=== PATIENT | female | born 1980 | race African-American/Black ===

== ENCOUNTER 2020-04-24 15:44 | Outpatient (REF) | payer OTHER, SELFPAY | END 2020-04-24 15:45 | disposition home or self-care (01) | LOC: HO.LAB 15:44 | PROVIDERS: Visit Provider Internal Medicine | DX: Z20.828 Contact with and (suspected) exposure to other viral communicable diseases (principal) | CPT/HCPCS: C9803; U0003 ==

== ENCOUNTER 2020-07-10 08:28 | Outpatient (REF) | payer OTHER, SELFPAY | END 2020-07-10 08:29 | disposition home or self-care (01) | LOC: HO.LAB 08:28 | PROVIDERS: Visit Provider Internal Medicine | DX: Z20.822 Contact with and (suspected) exposure to COVID-19 (principal) | CPT/HCPCS: 36415; C9803; U0003; U0005 ==

== ENCOUNTER 2020-08-29 15:44 | Outpatient (REF) | payer OTHER, SELFPAY | END 2020-08-29 15:45 | disposition home or self-care (01) | LOC: HO.LAB 15:44 | PROVIDERS: Visit Provider Internal Medicine | DX: Z20.822 Contact with and (suspected) exposure to COVID-19 (principal) | CPT/HCPCS: C9803; U0003; U0005 ==

== ENCOUNTER 2020-09-15 10:42 | Outpatient (REF) | payer OTHER, SELFPAY ==
[2020-09-15 11:13] LABS: COVID-19 Test Negative (Negative)
== END 2020-09-15 10:43 | disposition home or self-care (01) ==
LOC: HO.LAB 10:42
PROVIDERS: Visit Provider Internal Medicine
DX: Z20.822 Contact with and (suspected) exposure to COVID-19 (principal)
CPT/HCPCS: 36415; 87635; C9803

== ENCOUNTER 2024-04-19 14:06 | Outpatient (REF) | payer OTHER, SELFPAY ==
--- NOTE | ~2024-04-19 | CT_ITS ---
EXAMINATION: CT HEAD WITHOUT CONTRAST CLINICAL INFORMATION: Blunt head trauma with loss of consciousness, significant head injury and posttraumatic headache. COMPARISON: None available. TECHNIQUE: Contiguous axial imaging was performed from the skull base to vertex without intravenous administration of contrast. This CT examination was performed using dose optimization techniques as appropriate, variously including the following: *Automated exposure control *Adjustment of mA and/or kV according to patient size (this includes techniques or standardized protocols for targeted exams where dose is matched to indication/reason for exam; i.e. extremities or head) *Use of iterative reconstruction technique DLP: 745 mGy-cm FINDINGS: Ventricles, sulci and cisterns are normal. There is no midline shift, no abnormal intra- or extra- axial fluid accumulation. Og and white matter differentiation is normal. Bone window images show no evidence of skull fracture. Mild mucosal thickening is seen at the floor of left maxillary sinus. CT/CT head/brain wo IV con IMPRESSION: 1. Normal CT scan of the brain. 2. No intracranial hemorrhage or skull fracture is seen. 3. No evidence of space occupying lesion could be found. 4. The current plain CT scan of the brain shows no diagnostic evidence of acute cerebral infarction. Electronically signed by: Esteban Lo MD 04/20/2024 10:17 AM NINA
== END 2024-04-19 14:07 | disposition home or self-care (01) ==
LOC: HO.CT 14:06
PROVIDERS: PCP Internal Medicine; Visit Provider Registered Nurse
DX: S06.0X9A Concussion with loss of consciousness of unspecified duration, initial encounter (principal)
CPT/HCPCS: 70450

== ENCOUNTER 2025-01-10 12:14 | Outpatient (AMB) | payer OTHER, SELFPAY ==
--- NOTE | 2025-01-10 12:24 | A.OFFVIS_ITS ---
Intake Visit Reasons: F/u Allergies No Known Allergies Allergy (Verified 01/10/25 12:29) Medication List - Last Reconciled 01/10/25 by Carolyn Bran CNP azelastine intranasal bupropion HCl 75 mg PO BID cetirizine 10 mg PO DAILY divalproex (Depakote) 250 mg PO BEDTIME 90 days gabapentin 300 mg PO BID hydrochlorothiazide 25 mg PO DAILY losartan 25 mg PO DAILY sumatriptan succinate mg PO tamoxifen 20 mg PO DAILY HPI Comments Details: 44-year-old woman with migraine headaches and breast cancer s/p RT in 2023 currently on tamoxifen. Headaches were happening a few times a week, more around her period. Triggers also included bright lights. Sleep was not so good, wakes during the night and has trouble falling back to sleep. Napping during the day. She was having more numbness and tingling to right hand over the last few months. [facility] Medical History (Updated 01/10/25 @ 12:43 by Carolyn Bran CNP) Carpal tunnel syndrome Insomnia Depression with anxiety Migraine without aura Review of Systems Const Denies chills, Denies daytime sleepiness, Reports difficulty sleeping, Denies fatigue, Denies fever(s), Denies frequent falls, Reports headache(s), Denies increased appetite, Denies poor appetite, Denies snoring, Denies weakness, Denies weight gain and Denies weight loss Eyes Denies loss of vision ENT Denies vertigo, Denies dizziness and Reports headache(s) Card Denies chest pain at rest, Denies chest pain with activity, Denies syncope, Denies leg edema and Denies palpitations Resp Denies snoring GI Denies constipation, Denies heartburn, Denies diarrhea and Denies nausea Denies urinary frequency, Denies urinary incontinence and Denies urinary urgency Musc Denies abnormal gait, Reports numbness and Reports tingling Skin/Breast Denies dry skin and Denies rash Neuro Denies abnormal gait, Denies vertigo, Denies dizziness, Denies syncope, Denies frequent falls, Reports headache(s), Denies lack of coordination, Denies loss of vision, Denies memory loss, Reports numbness, Denies restless legs, Denies seizure-like activity, Reports tingling, Denies paresthesias, Denies tremor(s) and Denies weakness Psych Reports anxiety, Denies depression, Denies auditory hallucinations, Denies m iron loss, Denies visual hallucinations and Denies suicidal ideation Endo Denies fatigue and Denies palpitations Physical Exam Const Other: General Appearance:? normal, in no acute distress. Skin:? no rashes, no significant birthmarks. Heart:? S1, S2 normal, no murmurs. Lungs:? clear anteriorly and posteriorly. Extremities:? no edema. Psych:? alert, oriented, cognitive function intact, cooperative with exam. Neuro Other: Mental Status:?Normal attention, orientation, memory and affect.? Cranial Nerves:?Pupils are equal, round and reactive to light. External occular muscles are intact. Visual slaughter are full. Face is symmetrical. Facial sensations are normal. Tongue is midline. Palate elevates symmetrically. Shoulder shrugging is normal. Hearing to bedside conversation is normal. Sensory Exam:?....? Coordination:?No ataxia,?no titubation.? Gait Exam: Within normal limits. Extrapyramidal System:?No tremor, rigidity with normal facial expressions.? Pronator Drift:?Not present.? Involuntary Movements:?No tremors seen.? Speech:?Normal.? Results Reviewed Results Reviewed: [address] [address] [address] Scan Report Signed Patient: Cristiana Montelongo MR#: [id number] : 1980 Acct:[id number] Age/Sex: 43 / F ADM Date: 04/19/24 Loc: HO.CT Attending Dr: Carolyn Bran CNP Ordering Physician: Carolyn Bran CNP Date of Service: 04/19/24 Procedure(s): CT head/brain wo IV con Accession Number(s): [id number] cc: Carolyn Bran CNP; LAYTON LANDIS MD~ EXAMINATION: CT HEAD WITHOUT CONTRAST CLINICAL INFORMATION: Blunt head trauma with loss of consciousness, significant head injury and posttraumatic headache. COMPARISON: None available. TECHNIQUE: Contiguous axial imaging was performed from the skull base to vertex without intravenous administration of contrast. This CT examination was performed using dose optimization techniques as appropriate, variously including the following: *Automated exposure control *Adjustment of mA and/or kV according to patient size (this includes techniques or standardized protocols for targeted exams where dose is matched to indication/reason for exam; i.e. extremities or head) *Use of iterative reconstruction technique DLP: 745 mGy-cm FINDINGS: Ventricles, sulci and cisterns are normal. There is no midline shift, no abnormal intra- or extra- axial fluid accumulation. Og and white matter differentiation is normal. Bone window images show no evidence of skull fracture. Mild mucosal thickening is seen at the floor of left maxillary sinus. CT/CT head/brain wo IV con IMPRESSION: 1. Normal CT scan of the brain. 2. No intracranial hemorrhage or skull fracture is seen. 3. No evidence of space occupying lesion could be found. 4. The current plain CT scan of the brain shows no diagnostic evidence of acute cerebral infarction. Electronically signed by: Esteban Lo MD 04/20/2024 10:17 AM EST --- NCV/EMG RTUE This is a normal study. 01/14/21. 05/12/20 NCV/EMG UE THIS IS A NORMAL STUDY. Assessment & Plan Assessment & Plan (1) Migraine: Code(s): G43.909 - Migraine, unspecified, not intractable, without status migrainosus Category: Medical Qualifiers: Migraine type: unspecified Status migrainosus presence: without status migrainosus Intractability: not intractable Qualified Code(s): G43.909 - Migraine, unspecified, not intractable, without status migrainosus Plan: CT scan results reviewed, no acute findings. Continue Depakote DR 250mg 1 tablet at bedtime. Continue sumatriptan 50mg 1 tablet as needed for migraine. (2) Carpal tunnel syndrome: Code(s): G56.00 - Carpal tunnel syndrome, unspecified upper limb Category: Medical Qualifiers: Laterality: right Qualified Code(s): G56.01 - Carpal tunnel syndrome, right upper limb Plan: NCV/EMG ordered. Plan Meds tried: Amitriptyline, imitrex, propranalol, Topiramate, Verapamil, Verapamil ER Orders: Orders NE electromyogram (EMG) Today G56.01 - Carpal tunnel syndrome, right upper limb NE nerve conduction velocity Today G56.01 - Carpal tunnel syndrome, right upper limb Coding Level of Care Code Est Pt Level 4 (37020) Diagnoses Migraine without status migrainosus, not intractable, unspecified migraine type G43.909 Migraine type: unspecified Status migrainosus presence: without status migrainosus Intractability: not intractable Carpal tunnel syndrome of right wrist G56.01 Laterality: right
--- OUTSIDE RECORDS SUMMARY | 2025-01-10 13:12 | XMS_ITS | Clinical Summary ---
Author Organization [facility] Address [address] [place] [address] Care Team Providers Care Sock Examiner Name Role Phone De Singh MD Primary Care Provider [phone] Allergies Active Allergy Reactions Criticality Noted Date Comments Cashew Nut (Anacardium Occid entale) Skin Test 10/19/2023 Latex 10/19/2023 Shellfish 10/19/2023 Soybean Oil 10/19/2023 Medications Medication Sig Dispensed Refills Start Date End Date Status cetirizine (ZyrTEC) 10 MG tablet Take 1 tablet (10 mg total) by mouth daily. 0 Active linaclotide (LINZESS) 290 MCG capsule Take by mouth. 0 Activ e gabapentin (NEURONTIN) 300 MG capsule Take 1 capsule (300 mg total) by mouth 3 (three) times a day. 0 Active buPROPion (WELLBUTRIN) 75 MG tablet Take 1 tablet (75 mg total) by mouth 2 (two) times a day. 0 Active linaclotide (Linzess) 145 MCG CAPS Take 1 capsule (145 mcg total) by mouth every morning before breakfast. 0 Active hydroCHLOROthiazide (HYDRODIURIL) tablet 25 mg Take 1 tablet (25 mg total) by mouth daily. 0 Active verapamil (CALAN) 40 MG tablet Take 1 tablet (40 mg total) by mouth 3 (three) times a day. 0 Active EPINEPHrine, Anaphylaxis, (ADRENALIN) 1 MG/ML SOLN Inject under the skin. 0 Active norethindrone (MICRONOR) 0.35 MG tablet Take 1 tablet (0.35 mg total) by mouth daily. 0 Active fluticasone (FLONASE) 50 MCG/ACT nasal spray spray/apply 1 spray in each nostril daily. 0 Active fluticasone (FLOVENT HFA) 110 MCG/ACT inhaler Inhale 1 puff into the lungs 2 (two) times a day. 0 Active albuterol 108 (90 Base) MCG/ACT inhaler Inhale 2 puffs into the lungs every 6 (six) hours as needed for wheezing. 0 Active Probiotic Product (PROBIOTIC-10 PO) Take by mouth. 0 Act enrique etonogestrel (NEXPLANON) 68 MG IMPL subcutaneous implant 68 mg by Subdermal route once. 0 Active loratadine (Claritin) 10 MG tablet Take 1 tablet (10 mg total) by mouth daily. 0 Active SUMAtriptan (IMITREX) 50 MG tablet Take 1 tablet (50 mg total) by mouth every 2 (two) hours as needed for migraine. 0 Active hydrocortisone 1 % ointment Apply topically 2 (two) times a day. 0 Active naproxen (NAPROSYN) 500 MG tablet Take 1 tablet (500 mg total) by mouth 2 (two) times a day with meals. 0 Active Melatonin 10 MG TABS Take by mouth. 0 Active tamoxifen (NOLVADEX) 20 MG tablet Take 1 tablet (20 mg total) by mouth daily 30 tablet 9 01/25/2024 Active Active Problems No known active problems Family History Medical History Relation Name Comments Cancer Father prostate Cancer Mother Breast Relation Name Status Comments Father Mother Social History Tobacco Use Types Packs/Day Years Used Date Smoking Tobacco: Former Cigarettes Q uit: 11/13/2006 Smokeless Tobacco: Never Alcohol Use Standard Drinks/Week Comments Yes 0 (1 standard drink = 0.6 oz pur e alcohol) social Sex and Gender Information Value Date Recorded Sex Assigned at Not on file Gender Identity Not on file Sexual Orientation Not on file Job Start Date Occupation Industry Not on file Not on file Not on file Last Filed Vital Signs Vital Sign Reading Time Taken Comments Blood Pressure 153/98 01/25/2024 10:09 AM EDT Pulse 55 01/25/2024 10:09 AM EDT Temperature 36.9 C (98.4 F) 01/25/2024 10:09 AM EDT Respiratory Rate - - Oxygen Saturation 100% 01/25/2024 10:09 AM EDT Inhaled Oxygen Concentration - - Weight 75.1 kg (165 lb 8 oz) 01/25/2024 10:09 AM EDT Height 160 cm (5' 3 ) 10/19/2023 2:53 PM EDT Body Mass Index 29.32 10/19/2023 2:53 PM EDT Plan of Treatment Health Maintenance Due Date Last Done Comments Hepatitis C Screening 1980 COVID-19 Vaccine (#1) 1984 Depression Screening 1991 BMI Counseling 1997 Preventative Health Evaluation 1997 Cervical Cancer Screening (Pap Smear) 2000 Pneumococcal Vaccine (3 of 3 - PPSV23 or PCV20) 06/27/2019 04/02/2016, 06/27/2014 DTap / Tdap / Td (7 - Td or Tdap) 04/10/2023 04/10/2013, 06/30/1983, 12/28/1980, Additional history exists Colon Cancer Screening (Colonoscopy) 2024 Influenza Vaccine (#1) 2025 4, 04/12/2022, 07/31/2019, Additional history exists Hepatitis B Vaccines Completed 05/26/2005, 12/28/2004, 11/27/2004 RSV Ped < 20 months Aged Out No longe r eligible based on patient's age to complete this topic Care Teams Sock Examiner Relationship Specialty Start Date End Date De Singh MD PCP - General Internal Medicine 09/23/23
--- OUTSIDE RECORDS SUMMARY | 2025-01-10 13:12 | XMS_ITS ---
Author Organization [facility] Address [address] [place] [address] Phone Care Team Providers Care Client Retention Specialist Name Role Phone De Singh MD Primary Care Provider [phone] [facility] - Housing Status:Ongoing (Active) Start date:09/21/2024 Enrollment date:09/21/2024 Enrollment reason:Self-enrolled Related social drivers of health:Housing Instability Related program episode:Community Health Worker Program (Active) Overview Housing service of Community Health Worker Program Case Team Name Relationship Phone Jyoti Naranjo Community Health Worker(Responsi [facility] Staff) Continued Care and Services Coordination
--- OUTSIDE RECORDS SUMMARY | 2025-01-10 13:12 | XMS_ITS ---
Author Organization [facility] Address [address] [place] [address] Phone Care Team Providers Care Department Store Manager Name Role Phone De Singh MD Primary Care Provider [phone] [facility] - Social Service Status:Ongoing (Active) Start date:09/21/2024 Enrollment date:09/21/2024 Enrollment reason:Self-enrolled Related program episode:Community Health Worker Program (Active) Overview Social Service service of Community Health Worker Program Case Team Name Relationship Phone Jyoti Naranjo Community Health Worker(Responsi [facility] Staff) Continued Care and Services Coordination
--- OUTSIDE RECORDS SUMMARY | 2025-01-10 13:12 | XMS_ITS | Encounter Summary ---
Author Organization [facility] Address [address] [place] [address] Care Team Providers Care Corporate Accounting Manager Name Role Phone De Singh MD Primary Care Provider [phone] Reason for Visit * Reason Comments Oncotype DX ordered Final Report - Oncotype Encounter Details Date Type Department Care Team Description 10/19/[address] [facility] Oncology Services [address] [place], [place] [id number] Roseann Fraser RN Oncotype DX ordered; Final Report - Oncotype Social History Tobacco Use Types Packs/Day Years [...] file Not on file Not on file documented as of this encounter Progress Notes * Roseann Fraser RN - 10/19/2023 3:41 PM EDT Images from the original note were not included. Oncotype DX test order submitted to [employer] (formerly [employer]) on the provider portal. Testing turn around time is 2-3 weeks. Final report will be scanned under library media specialist when available. [employer] [facility] * Roseann Fraser RN - 10/19/2023 3:41 PM EDT Images from the original note were not included. - full report has been uploaded under the library media specialist tab and attached to the next FOV on 11/10/23. documented in this encounter Plan of Treatment Not on file documented as of this encounter Visit Diagnoses Not on filedocumented in this encounter Care Teams Corporate Accounting Manager Relationship Specialty Start Date End Date De Singh MD PCP - General Internal Medicine 09/23/23 documented as of this encounter
--- OUTSIDE RECORDS SUMMARY | 2025-01-10 13:12 | XMS_ITS ---
Author Name [facility] Organization Unknown Care Team Organization Name Specialty Phone Email Start Date End Da te [facility] De Singh Primary Care 03/23/2022 01/02/20 24
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
--- OUTSIDE RECORDS SUMMARY | 2025-01-10 13:12 | XMS_ITS ---
Author Organization [facility] Address [address] [place] [address] Phone Care Team Providers Care Vehicle Mechanic Name Role Phone De Singh MD Primary Care Provider [phone] [facility] - Transportation Status:Ongoing (Active) Start date:09/21/2024 Enrollment date:09/21/2024 Enrollment reason:Self-enrolled Related social drivers of health:Transportation Related program episode:Community Health Worker Program (Active) Overview Community Health Worker Program - Transportation Service Episode Case Team Name Relationship Phone Jyoti Naranjo Community Health Worker(Responsi [facility] Staff) Continued Care and Services Coordination
--- OUTSIDE RECORDS SUMMARY | 2025-01-10 13:12 | XMS_ITS | Encounter Summary ---
Author Organization [facility] Address [address] [place] [address] Care Team Providers Care Claims Manager Name Role Phone De Singh MD Primary Care Provider [phone] Encounter Details Date Type Department Care Team Description 11/11/2023 Social Work [facility] Oncology Services [address] [place] [address] [facility] Social History Tobacco Use Types Packs/Day Years [...] on file documented as of this encounter Plan of Treatment Not on file documented as of this encounter Visit Diagnoses Not on filedocumented in this encounter Care Teams Claims Manager Relationship Specialty Start Date End Date De Singh MD PCP - General Internal Medicine 09/23/23 documented as of this encounter
--- OUTSIDE RECORDS SUMMARY | 2025-01-10 13:12 | XMS_ITS ---
Author Organization [facility] Address [address] [place] [address] Phone Care Team Providers Care Food Processing Scientist Name Role Phone De Singh MD Primary Care Provider [phone] Community Health Worker Program Status:Ongoing (Active) Start date:09/21/2024 Enrollment date:09/21/2024 Enrollment reason:Self-enrolled Related service episodes:[facility] - Housing (Active), [facility] - Food Insecurity (Active), [facility] - Transportation (Active), [facility] - Social Service (Active) Overview Community Health Worker Program Case Team Name Relationship Phone Jyoti Naranjo Community Health Worker([place] [facility] Staff) Continued Care and Services Coordination
--- OUTSIDE RECORDS SUMMARY | 2025-01-10 13:12 | XMS_ITS | Encounter Summary ---
Author Organization [facility] [place] [address] Care Team Providers Care Joint Cutter Name Role Phone De Singh MD Primary Care Provider [phone] Reason for Visit * Reason Onset Date Comments prior auth 12/17/2024 Encounter Details Date Type Department Care Team (Late st Contact Info) Description 12/17/2024 Telephone Internal Medicine - [facility] [address] [place] [address] De Singh MD [address] [place] [phone] Social History Tobacco Use Types Packs/Day Years [...] Record ed Within the last 3 months, deepak luevano many times did you visit the emergency [...] care for your loved ones. For example, childcare director or elderly care for an older adult? [...] as of this encounter Progress Notes * Ana M Garcia MA - 12/18/2024 9:39 AM EDT Electronic PA requested * Antonino Clark - 12/17/2024 2:49 PM EDT Prior Authorization for Medication-do not complete and send this encounter unless you have the fax from the pharmacy. Is this a Cover My Meds request: Yes -- Anaya Code [id number] Name of Medication methocarbamoL (ROBAXIN) 750 mg tablet Dose of Medication 750 mg What is the RX # from the faxed refill? How does patient take this med? Sig: Take 1 tablet (750 mg total) by mouth 3 (three) times a day. What Pharmacy did the fax come from: [facility] Pharmacy fax #: [phone] [employer] Party Information from fax: What Prescription Plan does the patient have? BIN/PCN if applicable: Cardholder ID: [id number] Person Code: Relationship Code: Help desk phone: [phone] documented in this encounter Plan of Treatment Upcoming Encounters Date Type Department Care Team (Late st Contact Info) Description 01/16/2025 10:30 AM EDT Office Visit Internal Medicine - [facility] [address] [place] [address] Cara Carrillo, JAVY [address] [place] [address] 01/16/2025 1:00 PM EDT Evaluation [facility] [address] [phone] Peace Mcdonald PT 02/07/2025 10:00 AM EDT Office Visit [facility] Hematology Oncology [address] [place] [phone] Grace Barker MD [address] [place] [address] 02/21/2025 10:00 AM EDT Office Visit [address] [phone] Karlo Ayala MD [address] [place] [address] 03/25/2025 2:00 PM EST Office Visit Gastroenterology [facility] [address] [phone] Estella Ray PA [address] [place] [phone] 04/30/2025 10:45 AM EST Office Visit Internal Medicine [address] [phone] Nela Francis, JAVY [address] [place] [address] 07/02/2025 8:20 AM EST Office Visit [address] [phone] Karlo Ayala MD [address] [place] [phone] documented as of this encounter Visit Diagnoses Not on filedocumented in this encounter Additional Health Concerns Assessment Noted Time PHQ-9 Depression Total Score: 22 11/30/2 025 7:29 AM EDT documented as of this encounter Care Teams Joint Cutter Relationship Specialty Start Date End Date De Singh MD [address] [place] [address] PCP - General 09/07/1997 documented as of this encounter
--- OUTSIDE RECORDS SUMMARY | 2025-01-10 13:12 | XMS_ITS ---
Author Organization [facility] Address [address] [place] [address] Phone Care Team Providers Care General Practice Name Role Phone De Singh MD Primary Care Provider [phone] [facility] - Food Insecurity Status:Ongoing (Active) Start date:09/21/2024 Enrollment date:09/21/2024 Enrollment reason:Self-enrolled Related social drivers of health:Food Risk Related program episode:Community Health Worker Program (Active) Overview Community Health Worker Program - Food Insecurity Service Episode Case Team Name Relationship Phone Jyoti Naranjo Community Health Worker(Responsi [facility] Staff) Continued Care and Services Coordination
== END 2025-01-10 12:56 | disposition home or self-care (01) ==
LOC: HO.HSM 12:15
PROVIDERS: PCP Internal Medicine; Visit Provider Registered Nurse
DX: G43.909 Migraine, unspecified, not intractable, without status migrainosus (principal); G56.01 Carpal tunnel syndrome, right upper limb
CPT/HCPCS: 99214

== ENCOUNTER → 2025-01-10 12:14 | Outpatient (BNVA) | payer OTHER, SELFPAY | PROVIDERS: PCP Internal Medicine; Visit Provider Registered Nurse | DX: G43.909 Migraine, unspecified, not intractable, without status migrainosus (principal); G56.01 Carpal tunnel syndrome, right upper limb; Z79.899 Other long term (current) drug therapy | CPT/HCPCS: 99212 ==

== ENCOUNTER 2025-01-17 10:40 | Outpatient (REF) | payer OTHER, SELFPAY ==
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
--- OUTSIDE RECORDS SUMMARY | 2025-01-17 12:12 | XMS_ITS ---
Author Organization [facility] Address [address] [place] [address] Phone Care Team Providers Care Glass Novelty Maker Name Role Phone De Singh MD Primary Care Provider [phone] [facility] - Social Service Status:Ongoing (Active) Start date:09/21/2024 Enrollment date:09/21/2024 Enrollment reason:Self-enrolled Related program episode:Community Health Worker Program (Active) Overview Social Service service of Community Health Worker Program Case Team Name Relationship Phone Jyoti Naranjo Community Health Worker(Responsi [facility] Staff) Continued Care and Services Coordination
--- OUTSIDE RECORDS SUMMARY | 2025-01-17 12:12 | XMS_ITS | Encounter Summary ---
Author Organization [facility] [place] [address] Care Team Providers Care Box Finisher Name Role Phone De Singh MD Primary Care Provider [phone] Reason for Visit * Reason Onset Date Comments prior auth 12/17/2024 Encounter Details Date Type Department Care Team (Late st Contact Info) Description 12/17/2024 Telephone Internal Medicine - [place] [address] [place] [address] De Singh MD [address] [place] [address] Social History Tobacco Use Types Packs/Day Years [...] care for your loved ones. For example, early childhood teacher or elderly care for an older adult? [...] What Pharmacy did the fax come from: [facility] Pharmacy fax #: [phone] Third Libertarian Information from fax: What Prescription Plan does the patient have? BIN/PCN if applicable: Cardholder ID: [id number] Person Code: Relationship Code: Help desk phone: [phone] documented in this encounter Plan of Treatment Upcoming Encounters Date Type Department Care Team (Late st Contact Info) Description 01/23/2025 2:30 PM EDT Treatment [address] [phone] Flako Collado, ASSEMBLY LINE BRAZER 01/25/2025 2:30 PM EDT Treatment [address] [phone] Flako Collado, ASSEMBLY LINE BRAZER 01/29/2025 2:30 PM EDT Treatment [address] [phone] Suleman Higuera, NBA 01/31/2025 11:00 AM EDT Treatment [address] [phone] José Miguel Adams, ASSEMBLY LINE BRAZER 02/04/2025 1:00 PM EDT Treatment [address] [phone] Flako Collado, ASSEMBLY LINE BRAZER 02/06/2025 11:00 AM EDT Treatment [address] [phone] Suleman Higuera, ASSEMBLY LINE BRAZER 02/07/2025 10:00 AM EDT Office Visit [facility] Hematology Oncology [address] [place] [phone] Grace Barker MD [address] [place] [address] 02/11/2025 11:00 AM EDT Treatment [address] [phone] Suleman Higuera, ASSEMBLY LINE BRAZER 02/13/2025 11:30 AM EDT Treatment [address] [phone] Peace Mcdonald, PT 02/21/2025 10:00 AM EDT Office [facility] [address] [phone] Karlo Ayala MD [address] [place] [address] 03/25/2025 2:00 PM EST Office Visit Gastroenterology [address] [phone] Estella Ray PA [address] [place] [phone] 04/30/2025 10:45 AM EST Office Visit Internal Medicine - [facility] [address] [place] [address] Nela Francis, JAVY [address] [place] [address] 07/02/2025 8:20 AM EST Office Visit Breast Care [facility] [address] [place] [phone] Karlo Ayala MD [address] [place] [address] documented as of this encounter Goals Goal [...] documented as of this encounter Care Teams Box Finisher Relationship Specialty Start Date End Date De Singh MD [address] [place] [address] PCP - General 09/07/1997 documented as of this encounter
--- OUTSIDE RECORDS SUMMARY | 2025-01-17 12:12 | XMS_ITS | Clinical Summary ---
Author Organization [facility] Address [address] [place] [address] Care Team Providers Care New Autos Delivery Driver Name Role Phone De Singh MD Primary Care Provider [phone] Allergies Active Allergy Reactions Criticality Noted Date [...] age to complete this topic Care Teams New Autos Delivery Driver Relationship Specialty Start Date End Date De Singh MD PCP - General Internal Medicine 09/23/23
--- OUTSIDE RECORDS SUMMARY | 2025-01-17 12:12 | XMS_ITS ---
Author Organization [facility] Address [address] [place] [address] Phone Care Team Providers Care Wic Site Coordinator Name Role Phone De Singh MD Primary Care Provider [phone] [facility] - Housing Status:Ongoing (Active) Start date:09/21/2024 Enrollment date:09/21/2024 Enrollment reason:Self-enrolled Related social drivers of health:Housing Instability Related program episode:Community Health Worker Program (Active) Overview Housing service of Community Health Worker Program Case Team Name Relationship Phone Jyoti Naranjo Community Health Worker(Responsi [facility] Staff) Continued Care and Services Coordination
--- OUTSIDE RECORDS SUMMARY | 2025-01-17 12:12 | XMS_ITS ---
Author Organization [facility] Address [address] [place] [address] Phone Care Team Providers Care Production Crew Supervisor Name Role Phone De Singh MD Primary Care Provider [phone] Community Health Worker Program Status:Ongoing (Active) Start date:09/21/2024 Enrollment date:09/21/2024 Enrollment reason:Self-enrolled Related service episodes:[facility] - Housing (Active), [facility] - Food Insecurity (Active), [facility] - Transportation (Active), [facility] - Social Service (Active) Overview Community Health Worker Program Case Team Name Relationship Phone Jyoti Naranjo Community Health Worker([employer] Staff) Continued Care and Services Coordination
--- OUTSIDE RECORDS SUMMARY | 2025-01-17 12:12 | XMS_ITS | Encounter Summary ---
Author Organization [facility] Address [address] [place] [address] Care Team Providers Care Disk Grinder Name Role Phone De Singh MD Primary Care Provider [phone] Encounter Details Date Type Department Care Team Description 11/11/2023 Social Work [facility] Oncology Services [address] [place] [address] [facility] Social History Tobacco Use Types Packs/Day [...] on filedocumented in this encounter Care Teams Disk Grinder Relationship Specialty Start Date End Date De Singh MD PCP - General Internal Medicine 09/23/23 documented as of this encounter
--- OUTSIDE RECORDS SUMMARY | 2025-01-17 12:12 | XMS_ITS ---
Author Organization [facility] Address [address] [place] [address] Phone Care Team Providers Care Metal Pickling Equipment Operator Name Role Phone De Singh MD Primary Care Provider [phone] [facility] - Transportation Status:Ongoing (Active) Start date:09/21/2024 Enrollment date:09/21/2024 Enrollment reason:Self-enrolled Related social drivers of health:Transportation Related program episode:Community Health Worker Program (Active) Overview Community Health Worker Program - Transportation Service Episode Case Team Name Relationship Phone Jyoti Naranjo Community Health Worker(Responsi [facility] Staff) Continued Care and Services Coordination
--- OUTSIDE RECORDS SUMMARY | 2025-01-17 12:12 | XMS_ITS ---
Author Organization [facility] Address [address] [place] [address] Phone Care Team Providers Care Rail Transportation Tabeler Name Role Phone De Singh MD Primary Care Provider [phone] [facility] - Food Insecurity Status:Ongoing (Active) Start date:09/21/2024 Enrollment date:09/21/2024 Enrollment reason:Self-enrolled Related social drivers of health:Food Risk Related program episode:Community Health Worker Program (Active) Overview Community Health Worker Program - Food Insecurity Service Episode Case Team Name Relationship Phone Jyoti Naranjo Community Health Worker(Responsi [employer] [facility] Staff) Continued Care and Services Coordination
--- OUTSIDE RECORDS SUMMARY | 2025-01-17 12:12 | XMS_ITS | Encounter Summary ---
Author Organization [facility] Address [address] [place] [address] Care Team Providers Care Commodity Broker Name Role Phone De Singh MD Primary Care Provider [phone] Reason for Visit * Reason Comments Oncotype DX ordered Final Report - Oncotype Encounter Details Date Type Department Care Team Description 10/19/2023 Nurse Only [facility] On[facility] [address], [place] [id number] Roseann Fraser RN Oncotype DX ordered; Final [...] included. Oncotype DX test order submitted to [facility] (formerly [employer]) on the provider portal. Testing turn around time is 2-3 weeks. Final report will be scanned under intermediate teacher when available. [facility] * Roseann Fraser RN - 10/19/2023 3:41 PM EDT Images from the original note were not included. - full report has been uploaded under the intermediate teacher tab and attached to the next FOV on 11/10/23. documented in this encounter Plan of Treatment Not on file documented as of this encounter Visit Diagnoses Not on filedocumented in this encounter Care Teams Commodity Broker Relationship Specialty Start Date End Date De Singh MD PCP - General Internal Medicine 09/23/23 documented as of this encounter
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
--- NOTE | 2025-01-17 13:34 | EMG_ITS ---
Chief complaint: numbness and tingling Reason for referral: R/O carpal tunnel syndrome Referred by:?Dr North Procedure done: Nerve conduction study upper extremities Findings: Bilateral median and ulnar motor and sensory studies were performed bilateral radial sensory studies were performed an EMG needle examination was performed. Bilateral median mixed sensory distal latencies were slightly prolonged. Impression: Mild bilateral median neuropathy across carpal tunnel MTDD
== END 2025-01-17 10:41 | disposition home or self-care (01) ==
LOC: HO.NEURO 10:40
PROVIDERS: PCP Internal Medicine; Visit Provider Psychiatry & Neurology Neurology
DX: G56.02 Carpal tunnel syndrome, left upper limb (principal)
CPT/HCPCS: 95886; 95913

== ENCOUNTER → 2025-01-17 13:34 | Outpatient (BNV) | payer OTHER, SELFPAY | PROVIDERS: PCP Internal Medicine; Visit Provider Psychiatry & Neurology Neurology | DX: G56.01 Carpal tunnel syndrome, right upper limb (principal) | CPT/HCPCS: 95886; 95913 ==

== ENCOUNTER 2025-04-09 11:17 | Outpatient (AMB) | payer OTHER, SELFPAY ==
--- NOTE | 2025-04-09 11:18 | MHC.OFFVIS ---
Intake Visit Reasons: 3M/ BRAR, CTS Allergies No Known Allergies Allergy (Verified 04/09/25 11:29) Medication List - Last Reconciled 04/09/25 by Carolyn Bran CNP azelastine intranasal bupropion HCl 75 mg PO BID cetirizine 10 mg PO DAILY divalproex (Depakote) 250 mg PO BEDTIME 90 days gabapentin 300 mg PO BID hydrochlorothiazide 25 mg PO DAILY losartan 25 mg PO DAILY sumatriptan succinate mg PO tamoxifen 20 mg PO DAILY HPI Comments Details: 44-year-old woman with migraine headaches and breast cancer s/p RT in 2023 currently on tamoxifen. She was here for NCV/EMG results. She was still having some numbness and tingling both hands that would come and go. Symptoms were more bothersome on the right, and sometimes she was waking with pain and paraesthesias. She was taking Depakote at bedtime, but medication did not seem to be helping with migraines. She had 12 migraines in 01/2025, 16 migraines in 02/2025, and 10 migraines so far this month. They were associated with photophobia, sonophobia, nausea, and vomiting, and could last up to few days at a time. She had to lay down in a dark, quiet room. Sumatriptan as needed helped some. She was under some more stress lately. [facility] Medical History (Updated 04/09/25 @ 11:28 by Carolyn Bran CNP) Carpal tunnel syndrome Insomnia Depression with anxiety Migraine without aura Review of Systems Const Denies chills, Denies daytime sleepiness, Reports difficulty sleeping, Denies fatigue, Denies fever(s), Denies frequent falls, Reports headache(s), Denies increased appetite, Denies poor appetite, Denies snoring, Denies weakness, Denies weight gain and Denies weight loss Eyes Denies loss of vision ENT Denies vertigo, Denies dizziness and Reports headache(s) Card Denies chest pain at rest, Denies chest pain with activity, Denies syncope, Denies leg edema and Denies palpitations Resp Denies snoring GI Denies constipation, Denies heartburn, Denies diarrhea and Denies nausea Denies urinary frequency, Denies urinary incontinence and Denies urinary urgency Musc Denies abnormal gait, Reports numbness and Reports tingling Skin/Breast Denies dry skin and Denies rash Neuro Denies abnormal gait, Denies vertigo, Denies dizziness, Denies syncope, Denies frequent falls, Reports headache(s), Denies lack of coordination, Denies loss of vision, Denies memory loss, Reports numbness, Denies restless legs, Denies seizure-like activity, Reports tingling, Denies paresthesias, Denies tremor(s) and Denies weakness Psych Reports anxiety, Reports depression, Denies auditory hallucinations, Denies memory loss, Denies visual hallucinations and Denies suicidal ideation Endo Denies fatigue and Denies palpitations Physical Exam Const Other: General Appearance:? normal, in no acute distress. Skin:? no rashes, no significant birthmarks. Heart:? S1, S2 normal, no murmurs. Lungs:? clear anteriorly and posteriorly. Extremities:? no edema. Psych:? alert, oriented, cognitive function intact, cooperative with exam. Neuro Other: Mental Status:?Normal attention, orientation, memory and affect.? Cranial Nerves:?Pupils are equal, round and reactive to light. External occular muscles are intact. Visual slaughter are full. Face is symmetrical. Facial sensations are normal. Tongue is midline. Palate elevates symmetrically. Shoulder shrugging is normal. Hearing to bedside conversation is normal. Sensory Exam:?....? Coordination:?No ataxia,?no titubation.? Gait Exam: Within normal limits. Extrapyramidal System:?No tremor, rigidity with normal facial expressions.? Pronator Drift:?Not present.? Involuntary Movements:?No tremors seen.? Speech:?Normal.? Results Reviewed Results Reviewed: [address] [address] EMG / Nerve Conduction Report Signed Patient: Cristiana Montelongo MR#: [id number] : 1980 Acct:[id number] Age/Sex: 44 / F ADM Date: 01/17/25 Loc: HO.NEURO Attending Dr: Caesar North MD Ordering Physician: Carolyn Bran CNP Date of Service: 01/17/25 Procedure(s): NE electromyogram (EMG); NE nerve conduction velocity Accession Number(s): [id number]; [id number] cc: Rondinelli,Carolyn EDGE DYER~ Reason for Exam: G56.01 - Carpal tunnel syndrome, right upper limb Chief complaint: numbness and tingling Reason for referral: R/O carpal tunnel syndrome Referred by:?Dr North Procedure done: Nerve conduction study upper extremities Findings: Bilateral median and ulnar motor and sensory studies were performed bilateral radial sensory studies were performed an EMG needle examination was performed. Bilateral median mixed sensory distal latencies were slightly prolonged. Impression: Mild bilateral median neuropathy across carpal tunnel Dictated By: Caesar North MD Signed By: <Electronically signed by Caesar North MD> 01/23/25 1549 -- CT Head at [facility] 04/19/24: Normal CT scan of the brain, no intracranial hemorrhage or skull fracture is seen, no evidence of space occupying lesion could be found, no diagnostic evidence of acute cerebral infarction. NCV/EMG RTUE 01/14/2021: This is a normal study. 01/14/21. NCV/EMG UE 05/12/2020: THIS IS A NORMAL STUDY. Assessment & Plan Assessment & Plan (1) Migraine: Code(s): G43.909 - Migraine, unspecified, not intractable, without status migrainosus Category: Medical Qualifiers: Intractability: not intractable Migraine type: unspecified Status migrainosus presence: without status migrainosus Qualified Code(s): G43.909 - Migraine, unspecified, not intractable, without status migrainosus Plan: She had 12 migraines in 01/2025, 16 migraines in 02/2025, and 10 migraines so far this month lasting 1 or more days at a time with photophobia, sonophobia, nausea, and vomiting. Depakote was not helping with migraines and medication was stopped. She has tried and failed multiple other medications including amitriptyline, propranolol, topiramate, and verapamil. Start Emgality 120mg/mL subcutaneous monthly, use/side effects reviewed. Start ondansetron 4mg 1 tablet as needed for nausea/vomiting #12 for 30 days. Continue sumatriptan 50mg 1 tablet as needed for migraine. Follow up in 3 months or sooner as needed. (2) Bilateral carpal tunnel syndrome: Code(s): G56.03 - Carpal tunnel syndrome, bilateral upper limbs Category: Medical Plan: NCV/EMG results reviewed, mild bilateral CTS. Treatment of this condition was reviewed. Recommend wearing wrist splints at night, script given. Plan Meds tried: Amitriptyline, imitrex, propranalol, Topiramate, Verapamil, Verapamil ER, Depakote Medications: New sumatriptan succinate take 1 tab at onset of headache; if no relief may repeat 1 tab after at least 2 hrs; PO 10 tabs 5RF 30 days galcanezumab-gnlm (Emgality Pen) loading dose 120 mg subcut QMONTH 2 mL 0RF 30 days galcanezumab-gnlm (Emgality Pen) 120 mg subcut QMONTH 1 mL 5RF 30 days [Bilateral Wrist Splint] Wear at nighttime 2 ea 0RF G56.03 - Carpal tunnel syndrome, bilateral upper limbs ondansetron HCl 4 mg PO DAILY PRN 12 tabs 5RF nausea and vomiting 30 days Discontinued sumatriptan succinate Discontinued Reason: Order PO divalproex (Depakote) Discontinued Reason: Doctor's Order 250 mg PO BEDTIME 90 days 90 tabs 1RF Coding Level of Care Code Est Pt Level 4 (84406) Diagnoses Migraine without status migrainosus, not intractable, unspecified migraine type G43.909 Intractability: not intractable Migraine type: unspecified Status migrainosus presence: without status migrainosus Bilateral carpal tunnel syndrome G56.03
--- OUTSIDE RECORDS SUMMARY | 2025-04-09 14:58 | XMS_ITS | Clinical Summary ---
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 generation assay allowing for earlier detection of HIV infection by detecting the presence of the HIV-1 p24 antigen as well as the traditional antibodies to HIV type 1 (including group O) and type 2. Use of a 4th generation assay is the current CDC recommendation for HIV screening. Zolia Singh [facility] LAB BLOOD ORDERABLES Final Re sult [facility] [address] [place] [address], [place] [phone] * Lipid panel with reflex to direct LDL (09/11/2024 2:13 PM EDT) Cholesterol 161 0 - 200 mg/dL LAB CHEMISTRY METHOD 09/11/2024 4:43 PM EDT [facility] Triglycerides 63 0 - 150 mg/dL LAB CHEMISTRY METHOD 09/11/2024 4:43 PM T [facility] HDL 94 >=40 mg/dL LAB CHEMISTRY METHOD 09/11/2024 4:43 PM EDT [facility] LDL Calculated 54 0 - 100 mg/dL LAB CHEMISTRY METHOD 09/11/2024 4:43 PM EDT [facility] VLDL Cholesterol Slim 12.6 mg/dL LAB CHEMISTRY METHOD 09/11/2024 4:43 PM EDT [facility] Non HDL Chol. (LDL+VLDL) 67 <145 mg/dL LAB CHEMISTRY METHOD 09/11/2024 4:43 PM EDT [facility] Chol/HDL Ratio 1.7 0.0 - 4.4 LAB CHEMISTRY METHOD 09/11/2024 4:43 PM T [facility] Blood Venous blood specimen / Unknown Venipuncture / Unknown 09/11/2024 2:13 PM EDT 09/11/2024 2:13 PM EDT us De Singh MD LAB BLOOD ORDERABLES Final Res ult [facility] [address] [place] [address], [place] [phone] * MG Mammo Digital Diagnostic w Stephon [...] Signed Date: 06/27/2024 14:22 ET Workstation ID: [id number] Transcribed By: Self Edit Transcribed Date: 06/27/2024 [...] Signed Date: 06/27/2024 14:22 ET Workstation ID: [id number] Transcribed By: Self Edit Transcribed Date: 06/27/2024 14:18 ET Karlo Ayala MD IMG BI PROCEDURES Final Result * Pap smear (08/12/2023) 08/12/2023 Narrative HISTORICAL TESTING LAB RESULTING AGENCY - 08/18/2023 4:30 PM EDT [id number] THINPREP PAP, IMAGED: NEGATIVE FOR SQUAMOUS INTRAEPITHELIAL [...] PAP HX NEGATIVE 2020, [Z01.419] Zoila Singh [facility] CYTOLOGY ORDERABLES Final Result HISTORICAL TESTING LAB RESULTING AGENCY from Last 3 Months or Most Recently Relevant to Health Maintenance Insurance [facility] Proximetry PLAN AUTO GENERIC AUTO GENERIC [facility] Care Teams Pattern Repair Person Relationship Specialty Start Date End Date De Singh MD [address] [place] [id number] PCP - General 09/07/1997
--- OUTSIDE RECORDS SUMMARY | 2025-04-09 14:58 | XMS_ITS | Encounter Summary ---
Author Organization [facility] Address [address] [place] [address] Care Team Providers Care Rock Picker Name Role Phone De Singh MD Primary Care Provider [phone] Encounter Details Date Type Department Care Team Description 11/11/2023 Social Work [facility] Oncology Services [address] [place] [address] [facility] Social History Tobacco Use Types Packs/Day Years [...] on filedocumented in this encounter Care Teams Rock Picker Relationship Specialty Start Date End Date De Singh MD PCP - General Internal Medicine 09/23/23 documented as of this encounter
--- OUTSIDE RECORDS SUMMARY | 2025-04-09 14:58 | XMS_ITS | Encounter Summary ---
Author Organization [facility] Address [address] [place] [address] Care Team Providers Care Industrial Technician Name Role Phone De Singh MD Primary Care Provider [phone] Encounter Details Date Type Department Care Team ([facility] st Contact Info) Description 03/25/2025 Telephone Gastroenterology - [facility] [address] [facility] [address] [place] [phone] Estella Ray PA [address] [place] [address] Social History Tobacco Use Types Packs/Day Years Used Date Smoking Tobacco: Former Cigarettes 0 Q uit: 11/13/2006 Smokeless Tobacco: Never Alcohol [...] for your loved ones. For example, children's attendant or elderly care for an older [...] is your living situation? Unrecognized valu e 09/21/2024 Interpersonal Safety Answer Date Record ed [...] as of this encounter Progress Notes * Kimmie Valdovinos MA - 03/28/2025 8:17 AM EST Noted * ANA PAULA Garcia - 03/27/2025 4:38 PM EST Ok, I sent her message via [employer]. * Kimmie Valdovinos MA - 03/27/2025 1:01 PM EST I placed PT on cancellation list can you please review Pts colonoscopy and advise Via My chart thanks * Damari Vyas - 03/25/2025 2:30 PM EST Patient came into the lobby was late for appointment, patient was unable to be seen 03/25/2025 please call with results of colon, please add to cancellation list, patient states she is on linaCLOtide(LINZESS) 290 mcg capsule , had a bowel movement this morning it was different colors documented in this encounter Plan of Treatment Upcoming Encounters Date Type Department Care Team (Late st Contact Info) Description 04/24/2025 9:10 AM EST Office Visit Gastroenterology - [address] [phone] Estella Ray PA [address] [address] 04/30/2025 10:45 AM EST Office Visit Internal Medicine - [facility] [address] [place] [address] Nela Francis, JAVY [address] [place] [address] 06/25/2025 10:00 AM EST Office Visit [facility] - [facility] [address] [place] [phone] Karlo Ayala MD [address] [place] [address] 10/14/2025 10:15 AM EDT Office Visit [facility] Hematology Oncology [address] [place] [phone] Grace Barker MD [address] [place] [address] 11/06/2025 10:30 AM EDT Office Visit Gastroenterology - [address] [facility] [address] [phone] Estella Ray PA [address] [address] documented as of this encounter Goals Goal [...] documented as of this encounter Care Teams Industrial Technician Relationship Specialty Start Date End Date De Singh MD [address] [place] [id number] PCP - General 09/07/1997 documented as of this encounter
--- OUTSIDE RECORDS SUMMARY | 2025-04-09 14:58 | XMS_ITS | Clinical Summary ---
Author Organization [facility] Address [address] [place] [address] Care Team Providers Care Hospitality Manager Name Role Phone De Singh MD Primary Care Provider [phone] Allergies Active Allergy Reactions Criticality Noted Date [...] Hepatitis C Screening 1979 COVID-19 Vaccine (#1) 1979 Depression Screening 1991 BMI Counseling 1997 Preventative Health Evaluation 1997 Cervical Cancer Screening (Pap Smear) 2000 DTap / Tdap / Td (7 - Td or Tdap) 04/10/2023 04/10/2013, 06/30/1983, 12/28/1980, Additional history exists Colon Cancer Screening (Colonoscopy) 2024 Influenza Vaccine (#1) 2025 , 04/12/2022, 07/31/2019, Additional history exists Hepatitis B Vaccines Completed 05/26/2005, 12/28/2004, 11/27/2004 Pneumococcal Vaccine Aged Out 04/02/2016, 06/27/19 15 No longer eligible based on patient's age to complete this topic RSV Ped < 20 months Aged Out No longe r eligible based on patient's age to complete this topic Care Teams Hospitality Manager Relationship Specialty Start Date End Date De Singh MD PCP - General Internal Medicine 09/23/23
--- OUTSIDE RECORDS SUMMARY | 2025-04-09 14:58 | XMS_ITS | Encounter Summary ---
Author Organization [facility] Address [address] [place] [address] Care Team Providers Care Colliery Clerk Name Role Phone De Singh MD Primary Care Provider [phone] Reason for Visit * Reason Comments Oncotype DX ordered Final Report - Oncotype Encounter Details Date Type Department Care Team Description 10/19/2023 Nurse Only [facility] Oncology Services [address] [place], [place] [phone] Roseann Fraser RN Oncotype DX ordered; Final [...] included. Oncotype DX test order submitted to [facility] (formerly [facility]) on the provider portal. Testing turn around time is 2-3 weeks. Final report will be scanned under social media specialist when available. [facility] * Roseann Fraser RN - 10/19/2023 3:41 PM EDT Images from the original note were not included. - full report has been uploaded under the social media specialist tab and attached to the next FOV on 11/10/23. documented in this encounter Plan of Treatment Not on file documented as of this encounter Visit Diagnoses Not on filedocumented in this encounter Care Teams Colliery Clerk Relationship Specialty Start Date End Date De Singh MD PCP - General Internal Medicine 09/23/23 documented as of this encounter
== END 2025-04-09 11:53 | disposition home or self-care (01) ==
LOC: HO.HSM 11:17
PROVIDERS: PCP Internal Medicine; Visit Provider Registered Nurse
DX: G43.909 Migraine, unspecified, not intractable, without status migrainosus (principal); G56.03 Carpal tunnel syndrome, bilateral upper limbs
CPT/HCPCS: 99214

== ENCOUNTER → 2025-04-09 11:17 | Outpatient (BNVA) | payer OTHER, SELFPAY | PROVIDERS: PCP Internal Medicine; Visit Provider Registered Nurse | DX: G43.909 Migraine, unspecified, not intractable, without status migrainosus (principal); G56.03 Carpal tunnel syndrome, bilateral upper limbs; C50.919 Malignant neoplasm of unspecified site of unspecified female breast; Z79.899 Other long term (current) drug therapy | CPT/HCPCS: 99212 ==